=== PATIENT | female | born 1990 | race Two or more races ===

== ENCOUNTER 2021-02-19 16:21 | Observation (INO) | payer MEDICAID, OTHER ==
[~2021-02-19] VITALS: Ht 165.1 cm; Wt 86.2 kg
[2021-02-20] MEDS ORDERED: BUTORPHANOL TARTRATE 2 MG/ML VIAL IM PRN (16:15)
== END 2021-02-20 13:50 | disposition home or self-care (01) ==
LOC: 8 EST LDRP 16:21
PROVIDERS: ADMIT Obstetrics & Gynecology; ATTEND Obstetrics & Gynecology
DX: O32.1XX0 Maternal care for breech presentation, not applicable or unspecified (principal); Z3A.36 36 weeks gestation of pregnancy
CPT/HCPCS: 59025; 76805; 76815; 76818; 96360; G0378